=== PATIENT | female | born 1950 | race Caucasian/White ===

== ENCOUNTER 2022-01-15 11:30 | Emergency (ER) | payer MEDICARE ==
[~2022-01-15] VITALS: Ht 157.8 cm; Wt 77.5 kg
--- NOTE | 2022-01-15 12:36 | ED Back Pain ---
General Chief Complaint: Back Problems Stated Complaint: LOWER BACK PAIN Nursing Triage Note: patient states she started having pain in her lower back on saturday and has a hx of pinched handy in lower back that did not require treatment. tried muscle relaxer saturday and saturday but did not help the pain. no medication for pain. pain is a zero when sitting but a 10 when she tries to get up. Source of Information: Patient Exam Limitations: No Limitations History of Present Illness Date Seen by Provider: Jan 15, 2022 Time Seen by Provider: 12:08 Initial Comments Patient is a 71-year-old female who presents to the emergency room with a chief complaint of right posterior hip pain. Patient states she noted it on Saturday when she was getting up out of an office chair. She has not really taken any medication for the pain since that time. She states she had similar symptoms on the left side about 2 months ago and was placed on a muscle relaxer and some other medicine she cannot remember. She states it really did not help much. She denies any trauma present or past. No prior hip surgeries or low back surgeries. She states the pain does not radiate anywhere. No issues with bowel or bladder incontinence. No recent fevers, chills, nausea vomiting or diarrhea. No dysuria, urgency or frequency. No hematuria. Movement makes the pain much worse. Nothing really makes it any better. All other review of systems reviewed and negative except as stated. Location: Lumbar Spine (right sided) Timing/Duration: 3-4 Days Severity: Moderate Pain/Injury Location: Back (pelvis on the right) Radiation: Other (NONE) Method of Injury: Other (NONE) Modifying Factors: Improves With Immobilization; Worse With Movement Associated Symptoms: denies symptoms Allergies and Home Medications Allergies Coded Allergies: No Known Drug Allergies (Unverified , 01/15/22) Patient Home Medication List Home Medication List Reviewed: Yes Review of Systems Constitutional: see HPI Cardiovascular: no symptoms reported Gastrointestinal: no symptoms reported Genitourinary: no symptoms reported Musculoskeletal: back pain (posterior right hip) Skin: no symptoms reported Psychiatric/Neurological: No Symptoms Reported All Other Systems Reviewed Negative Unless Noted: Yes Past Enqbpsl-Utgodh-Ycvojb Hx Patient Social History Tobacco Use?: No Substance use?: No Alcohol Use?: No Pt feels they are or have been: No Immunizations Up To Date Influenza Vaccine Up-to-Date: Yes; Up-to-Date First/Initial COVID19 Vaccinat: 2020 Second COVID19 Vaccination Sumeet: 2020 COVID19 Vaccine 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 oz. kg; 31.00 BMI Method: General Appearance: No Apparent Distress, WD/WN HEENT: PERRL/EOMI Cardiovascular: Regular Rate, Rhythm Respiratory: Lungs Clear, Normal Breath Sounds, No Accessory Muscle Use, No Respiratory Distress Gastrointestinal: Normal Bowel Sounds, Non Tender, Soft Back: No Vertebral Tenderness; Other (Patient has point tenderness over the posterior superior iliac crest. 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 Normal dorsiflexion of the great toes bilaterally. Normal strength and sensation bilateral lower extremities. 2+ right patellar DTR.) Skin: Normal Color, Warm/Dry Progress/Results/Core Measures Results/Orders My Orders Orders - SASKIA CORLEY MD Ketorolac Injection (Toradol Injection) (01/15/22 12:45) Prednisone Tablet (Deltasone Tablet) (01/15/22 12:45) Vital Signs/I&O 01/15/22 11:58 Temp 36.9 Pulse 76 Resp 18 B/P (MAP) 157/75 (102) Pulse Ox 98 O2 Delivery Room Air Blood Pressure Mean: 102 Departure Impression Primary Impression: Sacroiliitis Disposition: 01 HOME, SELF-CARE Condition: Stable Departure-Patient Inst. Decision time for Depature: 12:46 Referrals: NO,LOCAL PHYSICIAN (PCP/Family) Primary Care Physician Patient Instructions: Sacroiliac Joint Pain Add. Discharge Instructions: Apply heat to the area 4 times a day for the next 2 to 3 days. [id number] Tylenol may help a little bit. I do suggest ibuprofen 3 tablets which is 600 mg every 6 hours for pain. In addition I am going to put you on a little steroid. This will be a tapering dose over several days. Always take steroids with food. Because both ibuprofen and steroids can irritate your stomach I recommend an lllb-dry-eotbxjl generic acid e marketing specialist such as generic Pepcid, Zantac or Prilosec. Take this daily while you are on both the steroid and ibuprofen. If you develop redness, swelling or increased pain in that area or the pain starts to radiate down your leg please come back to the emergency room for reevaluation. Follow-up with your primary care doctor as needed. Scripts Prednisone (Prednisone) 10 Mg Tab.ds.pk 10 MG PO DAILY, #21 EA Take 6 tabs(60mg)daily,decrease by 1 tab(10MG)daily. Prov: SASKIA CORLEY MD 01/15/22 SASKIA CORLEY MD Jan 15, 2022 12:36
[2022-01-15] MEDS ORDERED: predniSONE 20 MG TAB PO ONE (12:45)
[2022-01-15] MEDS ORDERED: KETOROLAC 30 MG/ML VIAL IM ONE (12:45)
[2022-01-15] MEDS ORDERED: PRED10TA22 PO (12:52)
[2022-01-15 12:59] VITALS: BP 134/76
== END 2022-01-15 12:59 | disposition home or self-care (01) ==
LOC: EDUNIT# 11:30 → ER 11:35
DX: M46.1 Sacroiliitis, not elsewhere classified (principal)
CPT/HCPCS: 99284

== ENCOUNTER → 2022-06-21 | Outpatient (CLI) | payer MEDICARE ==
[~2022-06-21] MED LIST: PRED10TA22 PO
--- NOTE | 2022-06-21 13:13 | Diagnostic Imaging Report ---
PROCEDURE: US Hepatic (Liver). TECHNIQUE: Multiple real-time grayscale images were obtained over the right upper quadrant in various projections. INDICATION: Portal hypertension. Cholecystectomy. COMPARISON: None available. FINDINGS: The liver is normal in size and echogenicity. There is no focal hepatic mass. The main portal vein is patent with antegrade flow. Peak systolic velocity within the portal vein is between 15 and 20 cm/s. Cholecystectomy. The common bile duct measures is obscured by overlying bowel gas. No intrahepatic biliary duct dilatation. The visualized portions of the pancreas are normal. Portions of the head and tail are obscured by overlying bowel gas. The right kidney is normal in size. No hydronephrosis, shadowing calculi, or suspicious mass lesion. IMPRESSION: 1. Patent portal vein with normal directional flow. No Doppler features of portal hypertension. 2. The liver does not have a cirrhotic morphology. Dictated by: Dictated on workstation # [id number]
== END ==
LOC: RAD 07:07
PROVIDERS: ATTEND Nurse Practitioner
DX: K76.6 Portal hypertension (principal); Z90.49 Acquired absence of other specified parts of digestive tract
CPT/HCPCS: 76705